=== PATIENT | female | born 1985 | race Two or more races ===

== ENCOUNTER 2023-12-10 04:13 | Inpatient (IN) | payer OTHER ==
[~2023-12-10] VITALS: Ht 162.6 cm; Wt 73.9 kg
[2023-12-10] MEDS ORDERED: INTEGRA CAPSUL1 EACH PO (05:20)
[2023-12-10] MEDS ORDERED: PRENATAL TABLE1 EAC4 PO (05:20)
[2023-12-10] MEDS ORDERED: RINGERS SOLUTION,LACTATED 1,000 ML IV SCH (05:30)
[2023-12-10 06:45] LABS: HEMATOCRIT 36.5 % (36.0-45.00); HEMOGLOBIN 12.2 g/dL (12.0-15.00); MEAN CELL VOLUME 89.4 fL (80.00-100.00); MEAN CORPUSCULAR HGB CONC 33.5 g/dl (32.0-36.0); RED BLOOD COUNT 4.08 M/uL (4.00-6.00); RED CELL DISTRIBUTION WIDTH 13.2 % (11.5-14.5)
[2023-12-10 06:54] LABS: URINE APPEARANCE Cloudy; URINE BILIRRUBIN Negative (NEGATIVE); URINE BLOOD Moderate; URINE COLOR Dark Yellow; URINE GLUCOSE Negative (NEGATIVE); URINE LEUKOCYTE Large; URINE NITRATE Negative; URINE PROTEIN Negative (NEGATIVE); URINE UROBILINOGEN 0.2 E.U./dl
[2023-12-10 06:55] LABS: URINE EPITHELIAL CELLS 64.9 uL (0.0-38.8); URINE RBC 8.7 uL (0.0-20.8); URINE WBC 266.5 uL (0.0-23.2)
[2023-12-10 07:32] LABS: ALBUMIN 2.8 gm/dL (3.4-5.0); BILIRUBIN TOTAL 0.44 mg/dL (0.3-1.2); CALCIUM 8.7 mg/dL (8.5-10.1); CREATININE SERUM 0.94 mg/dL (0.55-1.02); GFR 65.95; GLOBULINA 3.5 G/DL (2.4-3.5); POTASSIUM 4.12 mEq/L (3.5-5.1); TOTAL PROTEIN 6.3 gm/dL (6.4-8.2)
[2023-12-10 08:00] LABS: INR < 0.93; PARTIAL THROMBOPLASTIN TIME 30.1 SECONDS (22.0-34.0); PROTHROMBIN TIME 9.2 SECONDS (9.0-11.5)
[2023-12-10 08:39] LABS: PLATELET COUNT 171 K/uL (150-450)
[2023-12-10] MEDS ORDERED: OXYTOCIN 500 ML IV SCH (09:00)
[2023-12-10] MEDS ORDERED: MEPERIDINE HCL/PF 50 MG/ML VIAL IV ONE (12:30)
[2023-12-10] MEDS ORDERED: PROMETHAZINE HCL 25 MG/ML AMPUL IV ONE (12:30)
[2023-12-10] MEDS ORDERED: LIDOCAINE HCL 1% 10ML VIAL IJ ONE (14:15)
[2023-12-10] MEDS ORDERED: CHLORHEXIDINE GLUCONATE 120 ML BOTTLE TOP ONE (14:15)
[2023-12-10] MEDS ORDERED: ERYTHROMYCIN BASE 1 GM TUBE OP ONE (14:15)
[2023-12-10] MEDS ORDERED: OXYTOCIN 1,000 ML IV SCH (14:15)
[2023-12-10] MEDS ORDERED: NALOXONE HCL 0.4 MG/ML AMPUL IV ONE (14:45)
[2023-12-10 14:48] LABS: ABG PH 7.337 (7.35-7.45)
[2023-12-10 14:49] LABS: ABG PO2 28.8 mmHg (80-100); ABG pCO2 40.1 mmHg (35-45); BASE EXCESS -4.5 mmol/l; SaO2 48.4 %; Tco2 22.2 mmol/l; o2 21 %
[2023-12-10] MEDS ORDERED: IBUprofen 600 MG TABLET PO SCH (18:00)
[2023-12-11 10:38] LABS: MEAN CELL VOLUME 89.4 fL (80.00-100.00); MEAN CORPUSCULAR HGB CONC 33.3 g/dl (32.0-36.0); PLATELET COUNT 160 K/uL (150-450); RED BLOOD COUNT 2.35 M/uL (4.00-6.00); RED CELL DISTRIBUTION WIDTH 13.7 % (11.5-14.5)
[2023-12-11 10:44] LABS: MEAN CORPUSCULAR HEMOGLOBIN 29.7 pg (27.00-32.0)
[2023-12-11 13:29] LABS: MEAN CELL VOLUME 89.2 fL (80.00-100.00); MEAN CORPUSCULAR HGB CONC 33.6 g/dl (32.0-36.0); PLATELET COUNT 151 K/uL (150-450); RED BLOOD COUNT 2.04 M/uL (4.00-6.00); RED CELL DISTRIBUTION WIDTH 13.4 % (11.5-14.5)
[2023-12-11 13:35] LABS: HEMATOCRIT 18.2 % (36.0-45.00); MEAN CORPUSCULAR HEMOGLOBIN 29.9 pg (27.00-32.0)
[2023-12-11 13:36] LABS: HEMOGLOBIN 6.1 g/dL (12.0-15.00)
[2023-12-12 19:59] LABS: HEMOGLOBIN 10.8 g/dL (12.0-15.00); MEAN CELL VOLUME 87.3 fL (80.00-100.00); MEAN CORPUSCULAR HEMOGLOBIN 29.4 pg (27.00-32.0); MEAN CORPUSCULAR HGB CONC 33.7 g/dl (32.0-36.0); PLATELET COUNT 161 K/uL (150-450); RED BLOOD COUNT 3.66 M/uL (4.00-6.00); RED CELL DISTRIBUTION WIDTH 14.3 % (11.5-14.5)
[2023-12-13] MEDS ORDERED: INTEGRA PLUS C1 EACH PO (08:24)
== END 2023-12-13 13:26 | disposition home or self-care (01) | DRG 807 ==
LOC: LDR 04:13 → OB/GYN 15:10
PROVIDERS: Obstetrics & Gynecology; ADMIT Specialist; ATTEND Specialist
PROC: 10E0XZZ Delivery of Products of Conception, External Approach (ICD-10-PCS; principal; 2023-12-10)
PROC: 0UQG7ZZ Repair Vagina, Via Natural or Artificial Opening (ICD-10-PCS; 2023-12-10)
PROC: 4A1HXCZ Monitoring of Products of Conception, Cardiac Rate, External Approach (ICD-10-PCS; 2023-12-10)
PROC: 30233N1 Transfusion of Nonautologous Red Blood Cells into Peripheral Vein, Percutaneous Approach (ICD-10-PCS; 2023-12-12)
DX: O71.4 Obstetric high vaginal laceration alone (principal); O99.02 Anemia complicating childbirth; D64.9 Anemia, unspecified; Z37.0 Single live birth; Z3A.39 39 weeks gestation of pregnancy; Z20.822 Contact with and (suspected) exposure to COVID-19